=== PATIENT | female | born 2000 ===

== ENCOUNTER 2019-04-09 08:05 | Outpatient (CLI) | payer OTHER | END 2019-04-09 08:06 | disposition home or self-care (01) | LOC: RAD 08:05 ==

== ENCOUNTER 2019-04-16 09:14 | Outpatient (CLI) | payer OTHER | END 2019-04-16 09:15 | disposition home or self-care (01) | LOC: RAD 09:14 | DX: N20.0 Calculus of kidney (principal) ==